=== PATIENT | female | born 1975 | race Caucasian/White ===

== ENCOUNTER 2016-10-04 10:30 | Emergency (ER) | payer OTHER ==
[~2016-10-04] VITALS: Ht 172.7 cm; Wt 109.1 kg
[~2016-10-04 10:30] MED LIST: LORA1TAB PO; ONDA8TAB7 PO; TRAZ-115 PO
[2016-10-04 10:34] VITALS: BP 113/80; PULSE 85; RESP 15; O2SAT 97
--- NOTE | 2016-10-04 11:47 | ED.REPORT ---
HPI-Abd Pain F 40 and Over Date of Service October 04, 2016 ED Provider: Yong Glass DO The patient is a 40 year old female who presents to the ED c/o left sided chest pain for the past few weeks. The pt went into the doctor 2 weeks ago for a bad cold. Her doctor told her the pain was from coughing and would go away. Her cough has improved but her chest pain has increased in severity. She denies fever, abdominal pain, diarrhea, and vomiting. Both the patient's mother and sister have had breast cancer. Nursing Notes Stated Complaint: SOB Chief Complaint: Female Abdominal Pain Nursing Notes Reviewed: Yes Allergies: Coded Allergies: doxycycline (Verified Allergy, Severe, HIVES, 03/20/15) tetracycline (Verified Allergy, Severe, HIVES, 03/20/15) prochlorperazine edisylate (Verified Allergy, Unknown, UNKNOWN, 03/20/15) prochlorperazine maleate (Verified Allergy, Unknown, UNKNOWN, 03/20/15) Uncoded Allergies: APPLES (Adverse Reaction, Severe, HEADACHES,MIGRAINE, 11/27/12) Scheduled Trazodone (Trazodone) 50 Mg Tablet 50-100 MG PO HS Scheduled PRN Lorazepam (Lorazepam) 1 Mg Tablet 1-2 MG PO Q8 PRN PRN For Anxiety Ondansetron ODT (Zofran ODT) 8 Mg Tab.rapdis 8 MG PO Q8 PRN PRN For Nausea/ Vomiting Tramadol (Tramadol) 50 Mg Tablet 50 MG PO Q4H PRN PRN For Pain General Time Seen by MD: 11:33 Chief Complaint Other (pre-syncope ) Hx Obtained From: Patient Arrived By: Walk-in Sudden in Onset?: Yes Onset Occurred: More than a week ago... (2 weeks) Symptom Duration: Since onset Progression since Onset: Gradually worsening Recent Healthcare: No recent doctor visit, No recent hospitalization Similar Sx Previous: No Past Medical History Past Medical History Cyclic vomiting syndrome Anxiety Past Surgical History Reports: , Hysterectomy (2012) Family History mother and sister both have breast cancer Smoking History Never Smoker Social History Alcohol Use: Denies alcohol use Other Social History: Local resident Ambulatory Status Independent Review of Systems Constitutional: Denies: Fever Respiratory: Reports: Non-productive cough Cardiovascular: Reports: Chest pain (left sided) GI: Denies: Abdominal pain, Diarrhea, Vomiting Complete sys rev & neg: except as marked. Physical Exam Physical Exam Notes: PERC negative and Wells low risk Vital Signs Vital Signs (First) Date Time Temp Pulse Resp B/P Pulse Ox O2 Delivery O2 Flow Rate FiO2 10/04/16 10:34 35.7 85 15 113/80 97 Room Air Initial VS: Reviewed General/Constitutional: Awake, Alert, Cooperative, Not toxic appearing Respiratory / Chest: Atraumatic, Breath sounds NL, Breath sounds = bilat tenderness of left chest wall Cardiovascular: Heart rate NL, Regular rhythm, Heart sounds NL Abdomen: Soft, Non-tender Back: Atraumatic, Inspection NL, Non-tender Head / Eyes: Normocephalic, PERRL Skin: Warm, Dry Neurologic: Oriented X3, Speech NL, No motor deficits Upper Extremity / MS: Full range of motion, No swelling, No deformity Lower Extremity / Pelvis / MS: Full range of motion, No swelling, No deformity Interpretation & Diagnostics Lab Results Interpretation Result Diagram: 10/04/16 1300 10/04/16 1300 Test 10/04/16 13:00 White Blood Count 6.8th/mm3 (3.8-10.1) Red Blood Count 4.69mil/mm3 (3.90-5.20) Hemoglobin 13.6g/dL (12.0-15.6) Hematocrit 40.9% (35.0-46.0) Mean Corpuscular Volume 87.2fL (81-100) Mean Corpuscular Hemoglobin 29.0pg (27.0-35.0) Mean Corpuscular Hemoglobin Concent 33.3% (32.0-37.0) Red Cell Distribution Width 13.1% (12.3-15.4) Platelet Count 244bil/L (150-400) Neutrophils (%) (Auto) 45.5% (40-74) Lymphocytes (%) (Auto) 43.8% (14-46) Monocytes (%) (Auto) 8.1% (4-12) Eosinophils (%) (Auto) 2.2% (0-5) Basophils (%) (Auto) 0.3% (0-3) Sodium Level 140mEq/L (134-144) Potassium Level 4.4mEq/L (3.5-5.2) Chloride Level 104mEq/L (97-108) Carbon Dioxide Level 23mmol/L (18-29) Blood Urea Nitrogen 14mg/dL (6-24) Creatinine 0.70mg/dL (0.57-1.00) Estimat Glomerular Filtration Rate 131mL/min (>59) Glucose Level 83mg/dL (60-99) Calcium Level 9.6mg/dL (8.5-10.1) Magnesium Level 1.9mg/dL (1.6-2.6) Total Bilirubin 0.2mg/dL (0.0-1.2) Aspartate Amino Transf (AST/SGOT) 14U/L (0-50) Alanine Aminotransferase (ALT/SGPT) 17U/L (0-32) Alkaline Phosphatase 74U/L (25-150) Troponin T < 0.010ug/L (0.0-0.011) Total Protein 7.1g/dL (6.4-8.4) Albumin 4.1g/dL (3.4-5.0) Hold Sandhu Top Tube Received (Received) ECG Interpretation Time: 13:19 Interpreted by: ED physician Normal ECG Interpretation: Normal sinus rhythm (rate 69) X-Ray Chest Interpretation Chest Xray Interpretation: IMPRESSION: No acute process. Dictated by: Brittney Sherman M.D. on 10/04/2016 at 12:50 Approved by: Brittney Sherman M.D. on 10/04/2016 at 12:50 View: Portable Interpretation / Wet Read by: Interpret - Radiologist Re-Eval/Medical Decision Med Decision/Clinical Course Focal chest wall pain, Perc Rule negative, low risk by well's criteria. The rest of the workup is otherwise unremarkable. Will give tramadol. Return and follow-up precautions given. Counseled Regarding: Diagnosis, Lab results, Need for follow-up, When/why to return to ED Discharge & Departure Primary Impression: Chest pain Chest pain type: unspecified Qualified Code: R07.9 - Chest pain, unspecified Disposition: Home Discharge Condition All VS Reviewed: Yes Condition: Stable Additional Instructions: Your testing is reassuring. Use tramadol in addition to your other medications at home for pain. Follow-up with your primary care doctor. Return to the ER as needed for worsening symptoms. Referrals: Sinan Dobson MD (PCP) Scribe Attestation Portion of this note were transcribed by Brigid Mclaughlin. I, Dr. Glass, personally performed the history, physical exam, and medical decision-making: I reviewed and confirmed the accuracy for the information in the transcribed note. Signed by: neha Isbell, 10/04/16 1400 copies to: Sinan Dobson MD, Timothy S DO October 04, 2016 11:47 Brigid Mclaughlin October 04, 2016 11:55
--- NOTE | 2016-10-04 12:52 | DRSVH ---
PROCEDURE: X-RAY CHEST, TWO VIEWS ([id number]) INDICATIONS: left rib/chest pain TECHNIQUE: 2 views of the chest were acquired. COMPARISON: [facility], CR, XR CHEST 2VW, 09/13/2015, 10:10. FINDINGS: Surgical changes and devices: None. Lungs and pleura: No pleural effusions or pneumothorax. Lungs are clear. Mediastinum: Mediastinal contours are normal. Heart size is normal. Bones and chest wall: No suspicious bony abnormalities. Soft tissues appear unremarkable. IMPRESSION: No acute process. Dictated by: Brittney Sherman M.D. on 10/04/2016 at 12:50 Approved by: Brittney Sherman M.D. on 10/04/2016 at 12:50
[2016-10-04 13:12] LABS: BASOPHILS % (AUTO) 0.3 % (0-3); EOSINOPHILS % (AUTO) 2.2 % (0-5); MONOCYTES % (AUTO) 8.1 % (4-12); Mean Corpuscular Volume 87.2 fL (81-100); NEUTROPHILS % (AUTO) 45.5 % (40-74); Platelet Count 244 bil/L (150-400)
[2016-10-04 13:38] LABS: TROPONIN T < 0.010 ug/L (0.0-0.011)
[2016-10-04 13:50] LABS: Magnesium 1.9 mg/dL (1.6-2.6)
[2016-10-04] MEDS ORDERED: TRAM50TA2 PO (14:34)
[2016-10-04 14:58] VITALS: BP 101/61; PULSE 98; RESP 18; O2SAT 98
== END 2016-10-04 14:59 | disposition home or self-care (01) ==
LOC: SED 10:30
DX: R07.89 Other chest pain (principal); Z88.1 Allergy status to other antibiotic agents; Z88.8 Allergy status to other drugs, medicaments and biological substances